=== PATIENT | female | born 1955 | race Native Hawaiian/Other Pacific Islander ===

== ENCOUNTER 2017-02-16 12:38 | Emergency (ER) | payer OTHER ==
[~2017-02-16] VITALS: Ht 167.6 cm; Wt 62.1 kg
[2017-02-16 12:59] LABS: PLATELET COUNT 346 K/uL (152-353)
[2017-02-16 13:11] LABS: POTASSIUM 3.8 mmol/L (3.6-5.2); SODIUM 134 mmol/L (136-145)
== END 2017-02-16 14:21 | disposition other institution (70) ==
LOC: ED 12:38
PROVIDERS: Emergency Medicine
DX: F20.89 Other schizophrenia (principal); F10.159 Alcohol abuse with alcohol-induced psychotic disorder, unspecified; F23 Brief psychotic disorder; F32.89 Other specified depressive episodes; R79.1 Abnormal coagulation profile
CPT/HCPCS: 36415; 80053; 80307; 80320; 80329; 81000; 82550; 84484; 85027; 85610; 85730; 93005; 99283; G0479

== ENCOUNTER 2018-05-19 11:28 | Outpatient (CLI) | payer OTHER | END 2018-05-19 19:51 | disposition home or self-care (01) | LOC: RAD 11:28 | DX: R07.89 Other chest pain (principal) ==

== ENCOUNTER 2018-06-07 11:01 | Outpatient (CLI) | payer OTHER | END 2018-06-07 20:41 | disposition home or self-care (01) | LOC: RAD 11:01 | DX: M54.41 Lumbago with sciatica, right side (principal) ==

== ENCOUNTER 2018-06-15 21:24 | Emergency (ER) | payer OTHER ==
[~2018-06-15] VITALS: Ht 167.6 cm; Wt 55.8 kg
[2018-06-15] MEDS ORDERED: ATEN25TA21 PO (22:00)
[2018-06-15] MEDS ORDERED: VITAMIN D2 PO (22:01)
[2018-06-15] MEDS ORDERED: CYCL10TA35 PO (22:02)
[2018-06-15] MEDS ORDERED: FE TABS325 MG PO (22:02)
[2018-06-15] MEDS ORDERED: RANI150T78 PO (22:03)
[2018-06-15 23:48] LABS: PLATELET COUNT 112 K/uL (152-353)
[2018-06-16 00:11] LABS: POTASSIUM 3.3 mmol/L (3.6-5.2); SODIUM 136 mmol/L (136-145)
[2018-06-16 01:24] VITALS: BP 132/72; TEMP 98
== END 2018-06-16 01:13 | disposition home or self-care (01) ==
LOC: ED 21:24
PROVIDERS: Internal Medicine
DX: R07.89 Other chest pain (principal); M54.32 Sciatica, left side; R10.819 Abdominal tenderness, unspecified site; M89.9 Disorder of bone, unspecified; R00.0 Tachycardia, unspecified
CPT/HCPCS: 36415; 80053; 81000; 84484; 85007; 85027; 87086; 87088; 93005; 96372; 99283; J1885

== ENCOUNTER 2018-06-18 09:36 | Outpatient (CLI) | payer OTHER ==
[~2018-06-18 09:36] MED LIST: ATEN25TA21 PO; CYCL10TA35 PO; FE TABS325 MG PO; RANI150T78 PO; VITAMIN D2 PO
[2018-06-18] MEDS ORDERED: OXYC5TAB53 PO (10:22)
[2018-06-18] MEDS ORDERED: 904272561 PO (10:22)
== END 2018-06-18 09:51 | disposition short-term general hospital (02) ==
LOC: AMB 09:36
DX: R41.82 Altered mental status, unspecified (principal); G81.91 Hemiplegia, unspecified affecting right dominant side
CPT/HCPCS: A0425; A0427

== ENCOUNTER 2018-06-18 09:54 | Emergency (ER) | payer OTHER ==
[~2018-06-18] VITALS: Ht 167.6 cm; Wt 55.8 kg
[2018-06-18 10:06] VITALS: TEMP 98.4
[2018-06-18] MEDS ORDERED: OXYC5TAB53 PO (10:22)
[2018-06-18] MEDS ORDERED: 904272561 PO (10:22)
[2018-06-18 10:36] LABS: PLATELET COUNT 83 K/uL (152-353)
[2018-06-18 10:43] LABS: POTASSIUM 3.8 mmol/L (3.6-5.2); SODIUM 135 mmol/L (136-145)
[2018-06-18 11:01] LABS: PARTIAL THROMBOPLASTIN TIME 24.7 SECONDS (24.5-33.6)
[2018-06-18 13:37] VITALS: BP 144/96
== END 2018-06-18 14:15 | disposition short-term general hospital (02) ==
LOC: ED 09:54
PROVIDERS: Family Medicine
DX: I63.9 Cerebral infarction, unspecified (principal); R00.0 Tachycardia, unspecified
CPT/HCPCS: 80053; 81000; 82550; 82805; 84484; 85007; 85027; 85610; 85730; 87088; 93005; 99285